=== PATIENT | male | born 1965 | race Asian ===

== ENCOUNTER 2017-07-27 18:13 | Emergency (ER) | payer SELFPAY ==
[~2017-07-27] VITALS: Ht 162.6 cm; Wt 63.5 kg
[2017-07-27 18:18] VITALS: BP 176/85
--- NOTE | 2017-07-27 18:20 | NUR ---
PT TO LOBBY
--- NOTE | 2017-07-27 19:13 | NUR ---
PT TO ER BED 3
--- NOTE | 2017-07-27 19:15 | NUR ---
Pt report given to DONNELL MAO . Transfer of care at this time.
[2017-07-27] MEDS ORDERED: LIDOCAINE/EPI 1% 1:100000 20 ML VIAL INJ ONE (19:25)
[2017-07-27] MEDS ORDERED: NON ADHERENT DRESSING TP SCH (19:25)
--- NOTE | 2017-07-27 19:30 | NUR ---
PT CAME IN DUE TO A CUT TO THE LEFT 5TH FINGER FORM WORK CUTTING MEAT. A&OX4. RR EVEN AND UNLABORED. DENIES ANY PAST MEDICAL HX. DENIES ANY PAIN AT THIS TIME. VSS AND AFEBRILE. ER MD MADE AWARE.
--- NOTE | 2017-07-27 19:35 | NUR ---
DR. LARES AT BED SIDE. LIDOCAINE ADMINISTERED BY DR. LARES.
--- NOTE | 2017-07-27 20:45 | NUR ---
PT'S SUTURE SITE DRESSED. NO S/SX OF BLEEDING OR INFECTION NOTED. PT DENIES PAIN OR DISCOMFORT.
[2017-07-27 20:57] VITALS: BP 145/88
--- NOTE | 2017-07-27 20:57 | NUR ---
Patient discharged with v/s stable. Written and verbal after care instructions given and explained. Patient alert, oriented and verbalized understanding of instructions. Ambulatory with steady gait. All questions addressed prior to discharge. ID band removed. Patient advised to follow up with PMD. Rx of ibuprofen and keflex given. Patient educated on indication of medication including possible reaction and side effects. Opportunity to ask questions provided and answered.
== END 2017-07-27 20:57 | disposition home or self-care (01) ==
LOC: MED 18:13 → EDBD 18:13 → MED 20:57
DX: S61.217A Laceration without foreign body of left little finger without damage to nail, initial encounter (principal); W26.0XXA Contact with knife, initial encounter; Y93.89 Activity, other specified; Y92.89 Other specified places as the place of occurrence of the external cause; Y99.8 Other external cause status
CPT/HCPCS: 12001; 99283; J2001

== ENCOUNTER 2020-12-29 13:32 | Emergency (ER) | payer SELFPAY ==
--- NOTE | 2020-12-29 13:56 | NUR ---
called pt in lobby, no answer at this time
--- NOTE | 2020-12-29 14:03 | NUR ---
ATTEMPTED TO CALL PT A SECOND TIME, NO ANSWER.
--- NOTE | 2020-12-29 14:04 | NUR ---
PATIENT LEFT WITHOUT BEING SEEN BY DR. LARES. NO FURTHER CARE PROVIDED FOR PATIENT. ADMITTING SAW PT LEAVE.
== END 2020-12-29 14:04 | disposition left against medical advice (07) ==
LOC: MED 13:32
DX: Z53.21 Procedure and treatment not carried out due to patient leaving prior to being seen by health care provider (principal)

== ENCOUNTER 2021-01-13 09:50 | Emergency (ER) | payer MEDICAID ==
[~2021-01-13] VITALS: Ht 162.6 cm; Wt 59.0 kg
[2021-01-13 10:04] VITALS: BP 168/81
--- NOTE | 2021-01-13 11:46 | NUR ---
PT AMBULATED TO ER BED 3.
[2021-01-13] MEDS ORDERED: ACET-8386 PO (12:18)
--- NOTE | 2021-01-13 12:21 | NUR ---
55 Y/O M BIB FAMILY FROM HOME, PATIENT PRESENTS TO ED WITH R BUTTOCK MASS FOR 3 MONTHS, NOW HAVING INCREASED PAIN WHILE WALKING AND SITTING. PT STATES IT STARTED THE SIZE OF A FINGER AND IS NOW THE SIZE OF "AN EGG". DENIES N/V/D; SKIN IS PINK/WARM/DRY; AAOX4 [place] SPEAKING WITH EVEN AND STEADY GAIT; LUNGS CLEAR BL; HR EVEN AND REGULAR; PT DENIES ANY FEVER, CP, SOB, OR COUGH AT THIS TIME; PATIENT STATES PAIN OF 8/10 AT THIS TIME; VSS; PATIENT POSITIONED FOR COMFORT; HOB ELEVATED; BEDRAILS UP X2; BED DOWN. ER MD MADE AWARE OF PT STATUS. PMH: DENIES NKA MED: ADVIL, TYLENOL
[2021-01-13 12:35] VITALS: BP 168/81
--- NOTE | 2021-01-13 12:36 | NUR ---
Patient discharged with v/s stable. Written and verbal after care instructions given and explained. Patient alert, oriented and verbalized understanding of instructions. Ambulatory with FRIEND. All questions addressed prior to discharge. ID band removed. Patient advised to follow up with PMD. Rx of HYDROCODONE/ACETAMINOPHEN given. Patient educated on indication of medication including possible reaction and side effects. Opportunity to ask questions provided and answered. CARDIO TECH USE: [id number] [id number]
== END 2021-01-13 12:36 | disposition home or self-care (01) ==
LOC: MED 09:50
DX: R22.41 Localized swelling, mass and lump, right lower limb (principal)
CPT/HCPCS: 99284

== ENCOUNTER 2022-03-11 12:42 | Emergency (ER) | payer SELFPAY ==
[~2022-03-11] VITALS: Ht 167.6 cm; Wt 74.8 kg
[~2022-03-11 12:42] MED LIST: ACET-8905 PO
[2022-03-11 12:58] VITALS: BP 176/84
[2022-03-11] MEDS ORDERED: TRIA0.029 TP (13:09)
[2022-03-11] MEDS ORDERED: ATA25 PO (13:09)
[2022-03-11] MEDS ORDERED: diphenhydrAMINE 50 MG/ML VIAL IM ONE (13:10)
--- NOTE | 2022-03-11 13:35 | NUR ---
57/M PRESENTS TO ED WITH C/O GENERALIZED RED, ITCHY RASH X1 YEAR. PATIENT REPORTS RASH WORSENING IN THE LAST WEEK, STATES HE WAS SEEN BY PCP FOR SAME SYMPTOMS BUT REPORTS HE HAS NOT FOUND RELIEF. PATIENT DENIES USE OF NEW FOODS OR PRODUCTS, DENIES SOB, CP, N/V/D.
--- NOTE | 2022-03-11 13:45 | NUR ---
Patient discharged with v/s stable. Written and verbal after care instructions given and explained. Patient alert, oriented and verbalized understanding of instructions. Ambulatory with steady gait. All questions addressed prior to discharge. ID band removed. Patient advised to follow up with PMD. Rx of ATARAX, TRIAMCINOLONE ACETONIDE given. Patient educated on indication of medication including possible reaction and side effects. Opportunity to ask questions provided and answered.
== END 2022-03-11 13:45 | disposition home or self-care (01) ==
LOC: MED 12:42
DX: L30.9 Dermatitis, unspecified (principal); R03.0 Elevated blood-pressure reading, without diagnosis of hypertension
CPT/HCPCS: 96372; 99283; J1200

== ENCOUNTER 2022-04-29 13:42 | Emergency (ER) | payer SELFPAY ==
[~2022-04-29 13:42] MED LIST changes: +ATA25 PO; +TRIA0.029 TP
--- NOTE | 2022-04-29 14:11 | NUR ---
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
== END 2022-04-29 14:11 | disposition left against medical advice (07) ==
LOC: MED 13:42
DX: R21 Rash and other nonspecific skin eruption (principal); Z53.21 Procedure and treatment not carried out due to patient leaving prior to being seen by health care provider

== ENCOUNTER 2023-11-20 10:41 | Emergency (ER) | payer SELFPAY ==
[~2023-11-20] VITALS: Ht 160 cm; Wt 63.5 kg
[2023-11-20 11:00] VITALS: BP 180/93; PULSE 70; RESP 22; TEMP 97.8; O2SAT 100
[2023-11-20 11:57] LABS: BASOPHILS # (AUTO) 0.1 K/uL (0.00-0.22); BASOPHILS % (AUTO) 1.3 % (0.0-2.0); EOSINOPHILS # (AUTO) 0.2 K/uL (0-0.4); EOSINOPHILS % (AUTO) 3.1 % (0.0-4.0); HEMATOCRIT 44.8 % (36-52); HEMOGLOBIN 15.1 g/dL (12.0-18.0); LYMPHOCYTES # (AUTO) 2.3 K/uL (2.0-11.5); LYMPHOCYTES % (AUTO) 28.3 % (20.5-51.1); MEAN CORPUSCULAR HEMOGLOBIN 29 pg (27-31); MEAN CORPUSCULAR HGB CONC 34 g/dL (33-37); MEAN CORPUSCULAR VOLUME 85.5 fL (80-94); MONOCYTES # (AUTO) 0.6 K/uL (0.8-1.0); MONOCYTES % (AUTO) 6.9 % (1.7-9.3); NEUTROPHILS # (AUTO) 4.9 K/uL (1.8-7.7); NEUTROPHILS % (AUTO) 60.4 % (42.2-75.2); PLATELET COUNT (AUTO) 236 K/uL (140-450); RED BLOOD CELL COUNT(AUTO) 5.24 MIL/uL (4.20-6.10); RED CELL DISTRIBUTION WIDTH 14.2 % (11.6-13.7); WHITE BLOOD COUNT (AUTO) 8.1 K/uL (4.8-10.8)
[2023-11-20 12:16] LABS: ANION GAP 12.8 (8-16); CALCIUM 9.2 mg/dL (8.5-10.1); CARBON DIOXIDE 28.6 mmol/L (21-32); CREATININE 0.8 mg/dL (0.6-1.3); POTASSIUM 4.4 mmol/L (3.5-5.1)
[2023-11-20] MEDS: METOCLOPRAMIDE 10 MG TAB PO ONE (12:36)
[2023-11-20 13:00] VITALS: BP 142/77; PULSE 64; RESP 16; TEMP 97.8; O2SAT 99
[2023-11-20 13:12] LABS: ALANINE AMINOTRANSFERASE 39 U/L (12-78); ALBUMIN 3.9 g/dL (3.4-5.0); ALKALINE PHOSPHATASE 62 U/L (50-136); ASPARTATE AMINOTRANSFERASE 29 U/L (15-37); BILIRUBIN,DIRECT 0.1 mg/dL (0.0-0.3); TOTAL BILIRUBIN 0.5 mg/dL (0.0-1.0); TOTAL PROTEIN, SERUM 7.4 g/dL (6.4-8.2)
[2023-11-20] MEDS ORDERED: FAMO-90 PO (14:12)
[2023-11-20] MEDS ORDERED: METO-485 PO (14:12)
== END 2023-11-20 14:30 | disposition home or self-care (01) ==
LOC: MED 10:41
DX: R06.6 Hiccough (principal); I10 Essential (primary) hypertension; K29.70 Gastritis, unspecified, without bleeding; Z79.899 Other long term (current) drug therapy
CPT/HCPCS: 36415; 71045; 80048; 80076; 84484; 85025; 93005; 99285; J8597